=== PATIENT | male | born 1995 | race Caucasian/White ===

== ENCOUNTER 2017-06-03 16:04 | Emergency (ER) | payer SELFPAY | END 2017-06-03 19:00 | disposition home or self-care (01) | LOC: ERS 16:04 | DX: J34.0 Abscess, furuncle and carbuncle of nose (principal) | CPT/HCPCS: 10060; 87070; 87205 ==

== ENCOUNTER 2017-09-27 11:20 | Emergency (ER) | payer SELFPAY | END 2017-09-27 12:29 | disposition home or self-care (01) | LOC: ERS 11:20 | DX: J02.9 Acute pharyngitis, unspecified (principal); F90.9 Attention-deficit hyperactivity disorder, unspecified type | CPT/HCPCS: 87081; 87430; 99283 ==

== ENCOUNTER 2017-11-20 08:55 | Emergency (ER) | payer SELFPAY ==
[2017-11-20] MEDS ORDERED: Ondansetron ODT 4 MG TAB ONE (09:32)
== END 2017-11-20 09:49 | disposition home or self-care (01) ==
LOC: ERS 08:55
DX: K52.9 Noninfective gastroenteritis and colitis, unspecified (principal); F90.9 Attention-deficit hyperactivity disorder, unspecified type
CPT/HCPCS: 99283; Q0162

== ENCOUNTER 2017-11-28 14:20 | Emergency (ER) | payer SELFPAY | END 2017-11-28 15:38 | disposition home or self-care (01) | LOC: ERS 14:20 | DX: K52.9 Noninfective gastroenteritis and colitis, unspecified (principal); F90.9 Attention-deficit hyperactivity disorder, unspecified type; F32.9 Major depressive disorder, single episode, unspecified | CPT/HCPCS: 99283 ==

== ENCOUNTER 2017-12-11 12:50 | Emergency (ER) | payer SELFPAY ==
[2017-12-11] MEDS ORDERED: Ondansetron ODT 4 MG TAB ONE (13:33)
[2017-12-11 13:50] LABS: #Basophils 0.1 thou/uL (0.0-0.2); #Eosinphils 0.1 thou/uL (0.0-0.7); #Lymphocytes 2.1 thou/uL (1.20-3.40); #Monocytes 0.5 thou/uL (0.11-0.59); #Neutrophils 5.2 thou/uL (1.40-6.50); %Basophils 0.8 % (0.0-1.0); %Eosinophils 1.8 % (0.0-10.0); %Lymphocytes 25.7 % (21.0-51.0); %Monocytes 6.6 % (0.0-10.0); %Neutrophils 65.1 % (42.0-75.0); Hemoglobin 14.8 g/dL (14.0-18.0); Mean Corpuscular HGB CONC 34.7 g/dL (32.0-36.0); Mean Corpuscular Hemoglobin 29.4 pg (27.0-31.0); Mean Corpuscular Volume 84.8 fL (78.0-98.0); Mean Platelet Volume 8.2 fL (7.4-10.4); Platelet Count 202 thou/uL (130-400); RBC Distribution Width 12.3 % (11.5-14.5); Red Blood Cell (RBC) Count 5.02 mill/uL (4.70-6.10)
[2017-12-11 14:12] LABS: ALT (SGPT) 18 U/L (8-55); AST (SGOT) 11 U/L (5-34); Albumin 4.2 g/dL (3.5-5.0); Alkaline Phosphatase 81 U/L (40-150); Anion Gap 10 mmol/L (10-20); BUN (Urea Nitrogen) 6 mg/dL (8.9-20.6); Calc. Creatinine Clearance 0 mL/min (70-130); Calcium 9.7 mg/dL (7.8-10.44); Carbon Dioxide 27 mmol/L (22-29); Chloride 106 mmol/L (98-107); Estimated GFR-MDRD Greater than 90; Globulin 2.5 g/dL (2.4-3.5); Glucose 101 mg/dL (70-105); Lipase 36 U/L (8-78); Potassium 3.7 mmol/L (3.5-5.1); Protein, Total 6.7 g/dL (6.0-8.3); Sodium 139 mmol/L (136-145)
[2017-12-11 15:59] LABS: Bilirubin Negative (Negative); Blood, Urine Negative (Negative); Clarity CLEAR (Clear); Glucose, Urine (Dipstick) Negative (Negative); Leukocyte Negative (Negative); Nitrite Negative (Negative); Protein, Urine (Dipstick) Negative (Neg-Trace); Specific Gravity, Urine 1.011 (1.002-1.036); Urobilinogen 0.2 mg/dL (0.2-1.0); pH, Urine 7.5 (5.0-9.0)
== END 2017-12-11 16:41 | disposition home or self-care (01) ==
LOC: ERS 12:50
DX: K29.70 Gastritis, unspecified, without bleeding (principal); F90.9 Attention-deficit hyperactivity disorder, unspecified type
CPT/HCPCS: 80053; 81003; 83690; 85025; 96360; Q0162

== ENCOUNTER 2017-12-17 11:14 | Emergency (ER) | payer SELFPAY | END 2017-12-17 12:03 | disposition home or self-care (01) | LOC: ERS 11:14 | DX: L03.317 Cellulitis of buttock (principal); F90.9 Attention-deficit hyperactivity disorder, unspecified type | CPT/HCPCS: 99282 ==

== ENCOUNTER 2017-12-19 16:56 | Emergency (ER) | payer SELFPAY ==
--- NOTE | 2017-12-19 17:44 | RAD ---
RIGHT FOOT: 12/19/17 Four views. HISTORY: Injury to right foot. Tarsals appear unremarkable. Metatarsals and phalanges appear intact. MTP joints unremarkable. IMPRESSION: No acute fracture identified. POS: [facility]
== END 2017-12-19 18:39 | disposition home or self-care (01) ==
LOC: ERS 16:56
DX: S93.601A Unspecified sprain of right foot, initial encounter (principal); F90.9 Attention-deficit hyperactivity disorder, unspecified type; W22.8XXA Striking against or struck by other objects, initial encounter

== ENCOUNTER 2019-08-22 16:26 | Emergency (ER) | payer BC, SELFPAY ==
[~2019-08-22 16:26] MED LIST: Iopamidol-370 76% 500 ML 1 ML ONE
[2019-08-22 18:10] LABS: #Basophils 0.1 thou/uL (0.0-0.2); #Eosinphils 0.1 thou/uL (0.0-0.7); #Lymphocytes 2.2 thou/uL (1.20-3.40); #Monocytes 0.6 thou/uL (0.11-0.59); #Neutrophils 7.1 thou/uL (1.40-6.50); %Basophils 0.7 % (0.0-1.0); %Eosinophils 1.4 % (0.0-10.0); %Lymphocytes 21.7 % (21.0-51.0); %Monocytes 6.3 % (0.0-10.0); %Neutrophils 69.8 % (42.0-75.0); Hemoglobin 15.3 g/dL (14.0-18.0); Mean Corpuscular HGB CONC 34.4 g/dL (32.0-36.0); Mean Corpuscular Hemoglobin 29.5 pg (27.0-31.0); Mean Corpuscular Volume 85.9 fL (78.0-98.0); Mean Platelet Volume 8.3 fL (7.4-10.4); Platelet Count 232 thou/uL (130-400); RBC Distribution Width 12.3 % (11.5-14.5); Red Blood Cell (RBC) Count 5.17 mill/uL (4.70-6.10); White Blood Cell (WBC) Count 10.1 thou/uL (4.8-10.8)
[2019-08-22 18:31] LABS: ALT (SGPT) 19 U/L (8-55); AST (SGOT) 11 U/L (5-34); Albumin 4.4 g/dL (3.5-5.0); Alkaline Phosphatase 97 U/L (40-110); Anion Gap 9 mmol/L (10-20); BUN (Urea Nitrogen) 4 mg/dL (8.9-20.6); Bilirubin, Total 0.6 mg/dL (0.2-1.2); Calc. Creatinine Clearance 0 mL/min (70-130); Calcium 9.7 mg/dL (7.8-10.44); Carbon Dioxide 28 mmol/L (22-29); Chloride 106 mmol/L (98-107); Estimated GFR-MDRD Greater than 90; Globulin 2.7 g/dL (2.4-3.5); Glucose 95 mg/dL (70-105); Lipase 64 U/L (8-78); Potassium 4.2 mmol/L (3.5-5.1); Protein, Total 7.1 g/dL (6.0-8.3); Sodium 139 mmol/L (136-145)
--- NOTE | 2019-08-22 18:52 | CT ---
CT ABDOMEN AND PELVIS WITH IV CONTRAST: 08/22/19 PROVIDED CLINICAL HISTORY: Abdominal pain, recent trauma. FINDINGS: The visualized lung bases are free of significant opacity. The solid abdominal organs demonstrate and unremarkable CT appearance. There is localized increased density to the omental fat in the left lower quadrant. This appears to b e contiguous with a fat containing left inguinal hernia. There is no bowel dilatation, additional fat stranding, free fluid or free air apparent. The appendix appears normal. The osseous structures demonstrate no concerning lytic or blastic lesions. There is no evidence for a n acute osseous abnormality. IMPRESSION: Focal stranding of the omental fat of the left lower quadrant. Given the lack of additional findings involving the anterior abdominal wall or adjacent bowel, this may reflect mesenteric hyperemia based on its proximity to a fat containing left inguinal hernia. Inflammatory fat stranding or changes rela benoit to trauma are felt less likely. POS: [facility]
[2019-08-22] MEDS ORDERED: Ketorolac Tromethamine 30 MG/ML VIAL ONE (19:24)
== END 2019-08-22 19:34 | disposition home or self-care (01) ==
LOC: ERS 16:26
DX: K40.90 Unilateral inguinal hernia, without obstruction or gangrene, not specified as recurrent (principal); F90.9 Attention-deficit hyperactivity disorder, unspecified type
CPT/HCPCS: 36415; 74177; 80053; 83690; 85025; 96374; J1885; Q9967

== ENCOUNTER 2020-06-03 21:04 | Emergency (ER) | payer BC, SELFPAY ==
[2020-06-03] MEDS ORDERED: Lidocaine Viscous Sol 2% 15 ml UD Cup ONE (22:54)
== END 2020-06-03 22:58 | disposition home or self-care (01) ==
LOC: ERS 21:04
DX: T16.2XXA Foreign body in left ear, initial encounter (principal)
CPT/HCPCS: 99282

== ENCOUNTER 2020-07-16 23:33 | Observation (INO) | payer MEDICAID, OTHER ==
[2020-07-17 00:12] LABS: #Basophils 0.1 thou/uL (0.0-0.2); #Eosinphils 0.1 thou/uL (0.0-0.7); #Lymphocytes 2.9 thou/uL (1.20-3.40); #Monocytes 0.8 thou/uL (0.11-0.59); #Neutrophils 12.5 thou/uL (1.40-6.50); %Basophils 0.7 % (0.0-1.0); %Eosinophils 0.5 % (0.0-10.0); %Lymphocytes 17.9 % (21.0-51.0); %Monocytes 4.8 % (0.0-10.0); %Neutrophils 76.2 % (42.0-75.0); Hemoglobin 15.3 g/dL (14.0-18.0); Mean Corpuscular HGB CONC 33.7 g/dL (32.0-36.0); Mean Corpuscular Hemoglobin 28.6 pg (27.0-31.0); Mean Corpuscular Volume 84.8 fL (78.0-98.0); Mean Platelet Volume 8.5 fL (7.4-10.4); Platelet Count 207 thou/uL (130-400); RBC Distribution Width 12.1 % (11.5-14.5); Red Blood Cell (RBC) Count 5.36 mill/uL (4.70-6.10); White Blood Cell (WBC) Count 16.4 thou/uL (4.8-10.8)
[2020-07-17 00:34] LABS: ALT (SGPT) 21 U/L (8-55); AST (SGOT) 11 U/L (5-34); Albumin 4.3 g/dL (3.5-5.0); Alkaline Phosphatase 82 U/L (40-110); Anion Gap 13 mmol/L (10-20); BUN (Urea Nitrogen) 10 mg/dL (8.9-20.6); Bilirubin, Total 1.2 mg/dL (0.2-1.2); Calc. Creatinine Clearance 0 mL/min (70-130); Calcium 9.5 mg/dL (7.8-10.44); Carbon Dioxide 25 mmol/L (22-29); Chloride 105 mmol/L (98-107); Globulin 2.9 g/dL (2.4-3.5); Glucose 122 mg/dL (70-105); Lipase 21 U/L (8-78); Potassium 3.6 mmol/L (3.5-5.1); Protein, Total 7.2 g/dL (6.0-8.3); Sodium 139 mmol/L (136-145)
[2020-07-17 01:18] LABS: Bilirubin Negative (Negative); Blood, Urine Negative (Negative); Clarity Clear (Clear); Glucose, Urine (Dipstick) Normal (Negative); Ketone, Urine 10 mg/dL (Negative); Leukocyte Negative Leu/uL (Negative); Nitrite Negative (Negative); Protein, Urine (Dipstick) Negative (Neg-Trace); Specific Gravity, Urine 1.022 (1.002-1.036); Urobilinogen Normal mg/dL (Less than 2)
[2020-07-17] MEDS ORDERED: Ketorolac Tromethamine 30 MG/ML VIAL ONE ×2 (01:28→09:21)
[2020-07-17] MEDS ORDERED: Piperacillin/Tazobactam 4.5 GM VIAL ONE (03:13)
[2020-07-17 03:59] VITALS: BMI 32.8
[2020-07-17] MEDS ORDERED: Morphine 4 MG/ML VIAL SLOW IVP PRN ×3 (04:07→20:01)
[2020-07-17] MEDS: Lactated Ringer's 1,000 ML IV SCH ×2 (04:19→12:59)
--- NOTE | 2020-07-17 08:55 | CT ---
PRELIMINARY REPORT/[facility]/AFTER HOURS PROCEDURE This report was discussed with Mohit Gomez MD by Judy Arredondo on Jul 17, 2020 01:53:00 ADULT [employer]ISTRIES DIRECTOR. Addendum electronically signed by Judy Arredondo on July 17, 2020 1:53:59 AM ADULT MINISTRIES DIRECTOR CT ABDOMEN AND PELVIS WITH INTRAVENOUS CONTRAST: CLINICAL HISTORY: Severe abdominal pain that started at about 1700 hours. Patient states he was able to have BM but was painful. "This is pain that Motrin isn't going to touch." Patient reports known hernia but states this pain is different. TECHNIQUE: Axial computed tomography images of the abdomen and pelvis with intravenous contrast. CONTRAST: With Isovue-370 80 mL. COMPARISON: None provided. FINDINGS: LUNG BASES: No basilar airspace consolidation or pleural effusion. LIVER: Unremarkable. GALLBLADDER AND BILE DUCTS: Unremarkable. No calcified stone. No ductal dilation. PANCREAS: Unremarkable. SPLEEN: Unremarkable. ADRENAL GLANDS: Unremarkable. KIDNEYS, URETERS, AND BLADDER: Unremarkable. No hydronephrosis or nephrolithiasis. No ureteral or sangita dder calculi. STOMACH AND BOWEL: No obstruction. No wall thickening. No CT evidence of colitis or acute diverticuli tis. APPENDIX: The appendix is enlarged measuring up to 9 mm. There is subtle periappendiceal inflammation seen. PERITONEUM: No free fluid. No free air. LYMPH NODES: No lymphadenopathy. REPRODUCTIVE: Unremarkable as visualized. VASCULATURE: No aortic aneurysm. BONES: No fracture or suspicious osseous abnormality. ABDOMINAL WALL AND SOFT TISSUES: Unremarkable. IMPRESSION: Findings suggestive of acute uncomplicated appendicitis. ELECTRONICALLY SIGNED BY: Richar Monique DO Jul 17, 2020 1:48:36 AM ADULT MINISTRIES DIRECTOR This report is intended for review by the ordering physician only, in accordance of law. If you recei ve this report in error, please call [facility] at [phone]. FINAL REPORT CT ABDOMEN AND PELVIS WITH CONTRAST: EMERGENCY AFTER HOURS EXAM 07/17/2020 1:24 a.m. FINDINGS: Tiny nonobstructing bilateral renal calculi. Abnormal thickened appendix with periappendiceal fat stranding, evidence for acute noncomplicated remedios endicitis. Minimal fluid in borderline-sized distal small bowel probably related to ileus. This report agrees with preliminary report. CODE QA Transcribed Date/Time: 07/17/2020 10:22 AM
[2020-07-17] MEDS ORDERED: PROPOFOL 200 MG/20 ML VIAL ONE (09:21)
[2020-07-17] MEDS ORDERED: Ondansetron PF 4 MG/2 ML Vial ONE (09:21)
[2020-07-17] MEDS ORDERED: Glycopyrrolate 0.2 MG/ML 5 ML SYRINGE ONE (09:21)
[2020-07-17] MEDS ORDERED: diphenhydrAMINE 50 MG/ML VIAL ONE (09:21)
[2020-07-17] MEDS ORDERED: Succinylcholine 200 MG/10 ml SYRINGE FS ONE (09:21)
[2020-07-17] MEDS ORDERED: Rocuronium Bromide 10 MG/ML (10ML VIAL) ONE (09:21)
[2020-07-17] MEDS ORDERED: Dexamethasone 20 MG/5 ML VIAL ONE (09:21)
[2020-07-17 09:43] LABS: SARS-CoV-2 PCR by NAA Not Detected (NotDetected)
[2020-07-17] MEDS ORDERED: Ondansetron PF 4 MG/2 ML Vial IVP PRN ×2 (09:47→20:01)
[2020-07-17] MEDS ORDERED: Morphine 2 MG/ML VIAL SLOW IVP PRN ×2 (09:47→20:01)
[2020-07-17] MEDS ORDERED: Piperacillin/Tazobactam 3.375 GM in Sodium Chloride 0.9% 100 ML IVPB SCH (10:00)
[2020-07-17] MEDS ORDERED: Iopamidol-370 76% 500 ML 1 ML ONE (10:06)
--- NOTE | 2020-07-17 10:34 | HP ---
CHIEF COMPLAINT: Abdominal cramping and pain. HISTORY OF PRESENT ILLNESS: This is a 25-year-old male who started having cramping in his abdomen last night at 5:00 p.m. became more localized to the right lower quadrant associated with sharp pain, 8/10, did not radiate, associated with nausea, but no vomiting. No fever or chills. No chronic abdominal pain. No chronic diarrhea. No history of inflammatory bowel disease. PAST MEDICAL HISTORY: He denies. PAST SURGICAL HISTORY: He denies. MEDICATIONS: Taken daily at home, none. ALLERGIES: INCLUDE ADDERALL, CONCERTA. SOCIAL HISTORY: Occasional alcohol. No smoking. No other drugs. REVIEW OF SYSTEMS: Ten-system review of systems is otherwise negative unless described above. PHYSICAL EXAMINATION: VITAL SIGNS: Blood pressure 135/90, pulse 81, respirations 16, temperature 98.3. HEENT: Sclerae anicteric. Oropharynx clear. NECK: No lymphadenopathy. CHEST: Clear. HEART: Regular rate. ABDOMEN: Soft, tender in right lower quadrant with localized guarding without rebound. No abdominal hernias. EXTREMITIES: No ischemia or edema to extremities. LABORATORY DATA: White blood cell count is 16, hemoglobin 15. Creatinine is 1.08. ASSESSMENT: Acute appendicitis. PLAN: Laparoscopic appendectomy. Risks, benefits, and alternatives discussed. He gives consent. We will do this today. Job ID: [id number]
[2020-07-17] MEDS: Morphine 4 MG/ML VIAL SLOW IVP PRN ×2 (11:40→15:09)
[2020-07-17] MEDS ORDERED: Promethazine HCl 25 MG/ML VIAL SLOW IVP PRN (18:07)
[2020-07-17] MEDS ORDERED: Promethazine HCl 25 MG/ML VIAL IM PRN ×2 (18:07→20:01)
[2020-07-17] MEDS ORDERED: Ondansetron HCl/PF 4 MG/2 ML Vial IVP PRN (18:07)
[2020-07-17] MEDS ORDERED: Sodium Chloride 0.9% 100 ML ONE (18:11)
[2020-07-17] MEDS ORDERED: ceFOXitin 1 GM VIAL ONE (18:11)
[2020-07-17] MEDS ORDERED: XYLOCAINE 2%-EPI 1:100,000 20 ML VIAL ONE (18:13)
[2020-07-17] MEDS ORDERED: Bupivacaine 0.25% HCL 30 ML VIAL ONE (18:13)
[2020-07-17] MEDS ORDERED: Fentanyl 250 MCG/5 ML VIAL ONE (18:15)
[2020-07-17] MEDS ORDERED: Midazolam HCl 2 mg/2 ml Vial ONE (18:15)
[2020-07-17] MEDS ORDERED: Meperidine HCl/PF 25 MG/ML VIAL ONE (19:32)
[2020-07-17] MEDS ORDERED: hydrALAZINE 20 MG/ML VIAL SLOW IVP PRN (20:01)
[2020-07-17] MEDS ORDERED: Dextrose 5% in Water 1,000 ML IV PRN (20:01)
[2020-07-17] MEDS ORDERED: HYDROcodone/Acetaminophen 10/325 mg Tablet PO PRN (20:01)
[2020-07-17] MEDS ORDERED: Sodium Chloride 0.9% 1,000 ML IV SCH (20:01)
[2020-07-17] MEDS ORDERED: Dextrose 50% Abboject 50 ML SYRINGE SLOW IVP PRN (20:01)
[2020-07-17] MEDS ORDERED: Famotidine 20 MG TAB PO SCH (21:00)
[2020-07-17] MEDS ORDERED: Famotidine/PF 20 mg/2ml Vial SLOW IVP SCH (21:00)
[2020-07-17 22:30] VITALS: BP 133/61; TEMP 97.6
--- NOTE | 2020-07-18 00:16 | OP ---
DATE OF PROCEDURE: 07/17/2020 PREOPERATIVE DIAGNOSIS: Acute appendicitis. POSTOPERATIVE DIAGNOSIS: Acute appendicitis. PROCEDURE PERFORMED: Laparoscopic appendectomy. ANESTHESIA: General. ESTIMATED BLOOD LOSS: Minimal. COMPLICATIONS: None. SPECIMEN: Appendix. FINDINGS: Appendicitis. DESCRIPTION OF PROCEDURE: The patient was taken to the operating room and laid supine on the operating table. After general anesthetic was obtained, a Urrutia catheter was placed. The abdomen was prepped and draped in a sterile fashion. A curved incision was made below the umbilicus. Cautery was used to dissect down to and incise the intra-abdominal fascia. The abdominal cavity was entered bluntly using a Desiree clamp. A holding stitch of Vicryl was placed on each side of the fascia. A Marquita trocar was placed. High-flow peritoneum was obtained. A suprapubic 5-mm port and a left lower quadrant 5-mm port were placed under direct camera visualization. The cecum was rolled over to reveal acute appendicitis. A small window was made at the base of the appendix at the mesoappendix. A laparoscopic stapler was fired across the base of the appendix. A reload was fired across the mesoappendix. There was no bleeding on the staple lines. The appendix was placed in the EndoCatch bag and brought out through the Marquita. The right lower quadrant and pelvis were irrigated using sterile solution. There was no evidence of perforation, no pus. All port sites were infiltrated using local anesthesia. All ports were removed under camera visualization. Pneumoperitoneum was let down. Vicryl suture was used to close the fascial defect below the umbilicus; #4-0 Monocryl and Dermabond were used to close the skin incision. The patient was en route to recovery in stable condition. All instrument counts, needle counts, and lap counts were correct. Job ID: [id number]
== END 2020-07-17 22:55 | disposition home or self-care (01) ==
LOC: ERS 23:33 → ONC 07-17 02:49
PROVIDERS: ADMIT Surgery; ATTEND Surgery
PROC: 0DTJ4ZZ Resection of Appendix, Percutaneous Endoscopic Approach (ICD-10-PCS; principal; 2020-07-17)
DX: K35.80 Unspecified acute appendicitis (principal); F90.9 Attention-deficit hyperactivity disorder, unspecified type; N20.0 Calculus of kidney; Z88.8 Allergy status to other drugs, medicaments and biological substances; Z20.822 Contact with and (suspected) exposure to COVID-19
CPT/HCPCS: 36415; 74177; 80053; 81003; 83690; 85025; 87635; 88304; 96374; 96375; 96376; G0378; J0694; J1100; J1200; J1885; J2175; J2250; J2270; J2405; J2543; J2704; J3010; J3490; J7620; Q9967; S0020; U0003; U0005

== ENCOUNTER 2022-05-10 13:05 | Emergency (ER) | payer OTHER ==
[2022-05-10] MEDS ORDERED: Dexameth. Sod Phosp. 10 MG/ML (CHEMO USE ONLY) ONE ×2 (13:46→17:16)
[2022-05-10] MEDS ORDERED: Clindamycin/D5W 600 mg/50 ml Premix Bag ONE (14:13)
[2022-05-10] MEDS ORDERED: Benzocaine 20% Spray 60 ML CAN ONE (14:13)
[2022-05-10] MEDS ORDERED: Lidocaine 1% w/Epinephrine 1:100K 20 ML VIAL ONE (14:13)
[2022-05-10] MEDS ORDERED: Ketorolac Tromethamine 30 MG/ML VIAL ONE (14:39)
== END 2022-05-10 17:30 | disposition home or self-care (01) ==
LOC: ERS 13:05
DX: J36 Peritonsillar abscess (principal)
CPT/HCPCS: 70491; 96365; 96375; J1100; J1885; J3490

== ENCOUNTER 2022-12-26 11:17 | Emergency (ER) | payer OTHER ==
[2022-12-26 12:13] LABS: Bacteria/HPF 2+ HPF (None Seen); Bilirubin Negative (Negative); Blood, Urine 3+ (Negative); CAUTI Indications for Culture Pelvic or flank pain; Clarity Clear (Clear); Glucose, Urine (Dipstick) Normal (Negative); Ketone, Urine Negative (Negative); Leukocyte Negative Leu/uL (Negative); Nitrite Negative (Negative); Protein, Urine (Dipstick) Negative (Neg-Trace); RBC/HPF 0-3 HPF (0-3); Specific Gravity, Urine 1.005 (1.002-1.036); Squamous Epithelial None Seen HPF (0-3); Urine Culture Reflex No No; Urobilinogen Normal mg/dL (Less than 2); WBC/HPF 0-3 HPF (0-3)
[2022-12-26 12:34] LABS: #Basophils 0.1 thou/uL (0.0-0.2); #Eosinphils 0.1 thou/uL (0.0-0.7); #Monocytes 0.6 thou/uL (0.11-0.59); #Neutrophils 7.9 thou/uL (1.40-6.50); %Basophils 0.6 % (0.0-1.0); %Lymphocytes 23.8 % (21.0-51.0); %Monocytes 4.9 % (0.0-10.0); %Neutrophils 69.2 % (42.0-75.0); Hemoglobin 15.2 g/dL (14.0-18.0); Mean Corpuscular HGB CONC 33.6 g/dL (32.0-36.0); Mean Corpuscular Hemoglobin 28.5 pg (27.0-31.0); Mean Corpuscular Volume 84.8 fl (78.0-98.0); Platelet Count 256 10x3/uL (130-400); RBC Distribution Width 12.9 % (11.5-14.5); Red Blood Cell (RBC) Count 5.33 mill/uL (4.70-6.10); White Blood Cell (WBC) Count 11.5 10x3/uL (4.8-10.8)
[2022-12-26] MEDS ORDERED: Ketorolac Tromethamine 30 MG/ML VIAL ONE (12:38)
[2022-12-26] MEDS ORDERED: Ondansetron PF 4 MG/2 ML Vial ONE (12:42)
[2022-12-26 12:59] LABS: ALT (SGPT) 27 U/L (8-55); AST (SGOT) 20 U/L (5-34); Albumin 4.5 g/dL (3.5-5.0); Alkaline Phosphatase 84 U/L (40-110); Anion Gap 16 mmol/L (10-20); BUN (Urea Nitrogen) 9 mg/dL (8.9-20.6); Bilirubin, Total 0.7 mg/dL (0.2-1.2); Calc. Creatinine Clearance 0 mL/min (70-130); Calcium 10.3 mg/dL (7.8-10.44); Carbon Dioxide 18 mmol/L (22-29); Chloride 110 mmol/L (98-107); Estimated GFR 76; Globulin 2.8 g/dL (2.4-3.5); Glucose 105 mg/dL (70-105); Potassium 4.3 mmol/L (3.5-5.1); Protein, Total 7.3 g/dL (6.0-8.3); Sodium 140 mmol/L (136-145)
== END 2022-12-26 15:23 | disposition home or self-care (01) ==
LOC: ERS 11:17
DX: N13.2 Hydronephrosis with renal and ureteral calculous obstruction (principal); D72.829 Elevated white blood cell count, unspecified
CPT/HCPCS: 36415; 74176; 80053; 81001; 85025; 96361; 96374; 96375; J1885; J2405

== ENCOUNTER 2024-03-24 09:44 | Emergency (ER) | payer OTHER, SELFPAY ==
[2024-03-24] MEDS ORDERED: predniSONE 20 MG TAB ONE ×2 (12:42→12:43)
[2024-03-24] MEDS ORDERED: Ketorolac Tromethamine 30 MG (1 mL) VIAL ONE (12:43)
== END 2024-03-24 12:57 | disposition home or self-care (01) ==
LOC: ERS 09:44
DX: J02.9 Acute pharyngitis, unspecified (principal)
CPT/HCPCS: 87081; 87430; 96372; 99283; J1885; J7512

== ENCOUNTER 2024-06-10 04:03 | Emergency (ER) | payer SELFPAY ==
[2024-06-10] MEDS ORDERED: Ketorolac Tromethamine 30 MG (1 mL) VIAL ONE (04:26)
== END 2024-06-10 04:45 | disposition home or self-care (01) ==
LOC: ERS 04:03
DX: K02.9 Dental caries, unspecified (principal); J02.9 Acute pharyngitis, unspecified; Z55.6 Problems related to health literacy
CPT/HCPCS: 96372; 99282; J1885